=== PATIENT | female | born 1980 | race Two or more races ===

== ENCOUNTER 2024-06-11 22:47 | Emergency (ER) | payer SELFPAY ==
[2024-06-11 22:48] VITALS: BMI 272.4
[2024-06-11 22:58] VITALS: BP 132/85; PULSE 55; RESP 17; TEMP 36.7; O2SAT 98
--- NOTE | 2024-06-11 23:08 | PD.EDSKIN ---
ED Skin Abcess FB-RME/HPI General Chief complaint: Skin/Abscess/Foreign Body Stated complaint: RASH TO EXTREMITIES Time Seen by Provider: 06/11/24 23:06 Source: patient Arrival date/time: 06/11/24 22:47 43-year-old female presents emergency department complaining of generalized pruritic rash that is been ongoing for 3 days. Patient denies any new soaps, detergents, food, environmental exposure, other than just darted taking vitamin D 2 weeks ago. Mode of arrival: ambulatory Limitations: no limitations Related Data Previous Rx's ?Medication ?Instructions ?Recorded sulfamethoxazole 800 1 tab PO BID #10 tabs 04/28/ mg-trimethoprim 160 mg tablet (Bactrim DS) diphenhydramine HCl 25 mg capsule 25 mg PO TID PRN itching 7 days 06/12/24 (Benadryl) #10 caps Allergies Allergy/AdvReac Type Severity Reaction Status Date / Time No Known Allergies Allergy Verified 06/11/24 22:49 Review of Systems Review of Systems Systems Reviewed: All systems reviewed, normal except as documented Constitutional Constitutional: Reports system reviewed and no additional complaints, except as documented, Denies body ache(s), Denies chills and Denies fever(s) Eyes Eyes: Reports system reviewed and no additional complaints, except as documented and Denies change in vision ENT Ears, Nose, Mouth, and Throat: Reports system reviewed and no additional complaints, except as documented, Denies disequilibrium, Denies dizziness, Denies sore throat and Denies vertigo Cardiovascular Cardiovascular: Reports system reviewed and no additional complaints, except as documented, Denies chest pain and Denies dyspnea Respiratory Respiratory: Reports system reviewed and no additional complaints, except as documented, Denies chest congestion, Denies cough and Denies dyspnea Gastrointestinal Gastrointestinal: Reports system reviewed and no additional complaints, except as documented, Denies abdominal pain, Denies nausea and Denies vomiting Musculoskeletal Musculoskeletal: Reports system reviewed and no additional complaints, except as documented, Denies abnormal gait and Denies arthralgias Integumentary/Breasts Skin/Breast: Reports system reviewed and no additional complaints, except as documented, Denies erythema, Reports rash and Denies wounds Neurologic Neurologic: Reports system reviewed and no additional complaints, except as documented, Denies abnormal gait, Denies disequilibrium, Denies dizziness and Denies vertigo Past Medical History Past Medical History CARDIAC: Negative Congestive Heart Failure RESPIRATORY: Negative Chronic Obstructive Pulmonary Disease (COPD) GENITOURINARY: Negative Renal Disease ENDOCRINE: Negative Diabetes Mellitus Type 1 or Diabetes Mellitus Type 2 Social History SMOKING STATUS: Never smoker SUBSTANCE USE: does not use ED Exam General Limitations: Present no limitations General appearance: Present alert and in no apparent distress Head Head exam: Present atraumatic Eye Eye exam: Present normal appearance, PERRL and EOMI ENT ENT exam: Present normal exam, normal oropharynx and mucous membranes moist Neck Neck exam: Present normal inspection, full ROM and trachea midline Chest Chest inspection: Present normal inspection and symmetric chest wall rise Respiratory Respiratory exam: Present normal lung sounds bilaterally Cardiovascular Cardiovascular exam: Present regular rate, normal rhythm and normal heart sounds Abdominal Exam Abdominal exam: Present soft and normal bowel sounds Extremities Exam Extremities exam: Present normal inspection and full ROM Back Exam Back exam: Present normal inspection and full ROM Neurological Exam Neurological exam: Present alert, oriented X3 and CN II-XII intact Psychiatric Psychiatric exam: Present normal affect and normal mood Skin Skin exam: Present warm, dry, intact and rash Expanded Skin Exam Type of lesion: Present rash Distribution: Present generalized Description: Present macular Course Quality Measures none Orders Category Date Time Status Dexamethasone Inj [Decadron Inj] Med 06/11/24 23:07 Discontinued 10 mg PO X1 ONE DiphenhydrAMINE [Benadryl] Med 06/11/24 23:07 Discontinued 25 mg PO X1 ONE Famotidine [Pepcid] Med 06/11/24 23:07 Discontinued 20 mg PO X1 ONE Vital Signs Vital signs: Vital Signs Temperature 98.0 F 06/11/24 22:58 Pulse Rate 55 L 06/11/24 22:58 Respiratory Rate 17 06/11/24 22:58 Blood Pressure 132/85 H 06/11/24 22:58 Pulse Oximetry (%) 98 06/11/24 22:58 Oxygen Delivery Method Room Air 06/11/24 22:58 98% room air within normal limits Skin / Abscess / Foreign Body MDM Narrative MDM Narrative:: 43-year-old female presents emergency department complaining of generalized pruritic rash that is been ongoing for 3 days. Patient denies any new soaps, detergents, food, environmental exposure, other than just darted taking vitamin D 2 weeks ago. Macular reddened rash that is generalized involving neck chest back upper and lower extremities. Patient reports rash is pruritic. Patient denies any recent illness or fevers. Patient given steroids and antihistamines with significant improvement in rash. Patient instructed to stop taking vitamin D and follow-up with primary care provider in 2 to 3 days. Patient data External records reviewed:: [facility] previous records Clinical information provided by:: patient Social determinants that could affect healthcare access:: none Patient has the following chronic illnesses:: See chart How is presenting disease/condition affected by chronic disease/condition?: uneffected by Evaluation data The following diagnostics were reviewed and interpreted by me:: other (specify) (N/A) Lab and/or radiology exams considered but not ordered:: N/A Interpretation Summary: N/A Medications / Prescriptions Medications or Prescriptions considered but not ordered:: Ordered Medication administrations:: Medication Administration History Discontinued Medications Dexamethasone Sodium Phosphate (Dexamethasone Sod Phos Inj 10 Mg/Ml Vial) 10 mg PO X1 ONE Stop: 06/11/24 23:08 Last Admin: 06/11/24 23:17 Dose: 10 mg Documented By: Diphenhydramine HCl (Diphenhydramine 25 Mg Capsule) 25 mg PO X1 ONE Stop: 06/11/24 23:08 Last Admin: 06/11/24 23:17 Dose: 25 mg Documented By: Famotidine (Famotidine 20 Mg Tablet) 20 mg PO X1 ONE Stop: 06/11/24 23:08 Last Admin: 06/11/24 23:16 Dose: 20 mg Documented By: Admin: 06/11/24 23:16 Dose: 20 mg Documented By: Given Consultations Consultation(s) initiated? (list below): No Diagnosis Skin/Abscess Differential Diagnosis: abscess of skin or subcutaneous tissue, viral exanthem, urticaria, herpes zoster, allergic reaction to drug, cellulitis, eczema, insect bites and contact dermatitis Most likely diagnosis given after review of the tests above:: Allergic reaction Admission Indicated Admission indicated?: not indicated Admission Request Was there a request for admission?: No Disposition Plan Disposition Plan: Discharge Discharge Attestation Discharge Attestation: The patient and all family members were given an opportunity to ask questions and understood the discharge instructions. Discharge instructions specifically effects, indications for sooner follow up or return to the emergency department, and the expected course of current diagnosis. Patient condition: Stable Discharge Plan Plan Patient Disposition: HOME (Self Care) Disposition Comment: Stable Prescriptions/Referrals Prescriptions/Med Rec: New diphenhydramine HCl [Benadryl] 25 mg capsule 25 mg PO TID PRN (Reason: itching) 7 Days Qty: 10 0RF No Action sulfamethoxazole-trimethoprim [Bactrim DS] 800-160 mg tablet 1 tab PO BID Qty: 10 0RF Problem List Clinical Impression: Allergic reaction Patient/Caregiver Discharge Instructions Education Materials: ED Medicine Reaction: Allergic Additional Instructions: Drink plenty of fluids and stay hydrated. Monitor environment for any potential allergens. Do not start taking vitamin D unless instructed by your primary care provider at follow-up appointment in 2 to 3 days. Return to emergency department for any worsening symptoms or as needed. Print Language: Romansh Stand Alone Forms: Mary Ann Award Info., Patient Portal Info Letter PA/IT SENIOR SOFTWARE ENGINEER JAVA Supervising Physician PA/IT SENIOR SOFTWARE ENGINEER JAVA Supervising Physician: Dr. Art
[2024-06-11] MEDS: FAMOTIDINE 20 MG TABLET PO ×2 (23:16)
[2024-06-11] MEDS: DEXAMETHASONE SOD PHOS INJ 10 MG/ML VIAL PO (23:17)
[2024-06-11] MEDS: DiphenhydrAMINE 25 MG CAPSULE PO (23:17)
== END 2024-06-12 01:01 | disposition home or self-care (01) ==
PROVIDERS: Emergency Provider Emergency Medicine; PCP Family Medicine
DX: T78.40XA Allergy, unspecified, initial encounter (principal); R21 Rash and other nonspecific skin eruption
CPT/HCPCS: 99282; J1100; A9270